=== PATIENT | female | born 1950 | race Caucasian/White ===

== ENCOUNTER → 2016-11-20 | Outpatient (CLI) | payer MEDICARE, OTHER ==
[~2016-11-20] MED LIST: /PREG100CA PO; /ROPI1TA PO; ALBUPOW9 INH; APIDINJ2 SC; CALC600T53 PO; CALC600T7 PO; CORE25TA PO; CYMB60CA3 PO; DEMA20TA PO; FERR325T3 PO; IMIT100T PO; INSULANT SQ; INSULIN GLULISINE SQ; KLON0.5T PO; LIDO1DIS2 TD; LOSA100T36 PO; MULTTAB4 PO; PRAV40TA PO; TIZA4CAP PO; VICO5TAB PO; lidocaine patches TOP
[2016-11-20 16:14] LABS: ABG BASE EXCESS 5.1 (-2.0-2.0); ABG HCO3 30.7 MEQ/L (22.0-26.0); ABG PARTIAL PRESSURE CO2 49.3 mmHg (35.0-45.0); ABG PARTIAL PRESSURE O2 61.4 mmHg (75.0-100.0); ABG STANDARD HCO3 28.9 MEQ/L (22.0-26.0); ABG TOTAL CO2 32.2 MEQ/L (23.0-31.0); ABG pH (ARTERIAL) 7.412 UNITS (7.350-7.450)
== END ==
LOC: M LAB 14:02
PROVIDERS: ATTEND Internal Medicine Pulmonary Disease
DX: E66.2 Morbid (severe) obesity with alveolar hypoventilation (principal)

== ENCOUNTER → 2016-11-28 | Outpatient (CLI) | payer MEDICARE, OTHER ==
[2016-11-28 18:41] LABS: FREE T4 0.96 NG/DL (0.76-1.46)
== END ==
LOC: M SMT 13:38
PROVIDERS: ATTEND Internal Medicine Pulmonary Disease
DX: G47.33 Obstructive sleep apnea (adult) (pediatric) (principal); E03.9 Hypothyroidism, unspecified

== ENCOUNTER 2020-01-13 10:52 | Outpatient (RCR) | payer MEDICARE, OTHER ==
[~2020-01-13 10:52] MED LIST changes: -/PREG100CA PO; -/ROPI1TA PO; +ACET1TAB55 PO; +ALBU83IN INH; +AMBI5TAB PO; +APIDINJ INJ; +AUGM500T34 PO; +BISAC5TA PO; +CALC1CAP31 PO; +CARV6.25 PO; +COLA100C5 PO; +CORE6.25 PO; +DULO30CA9 PO; +FIBE625T PO; +HUMA100I5 SC; +IRBE75TA4 PO; +LANTINJ4 SC; +LINZ145C PO; +LIPI10TA PO; +LYRI100C PO; +MILK120011 PO; +NUTRPOW11 PO; +ONDA-83 PO; +OXYC-517 PO; +OXYCO5TA PO; +PANT40TA29 PO; +POLY1POW38 PO; +PRAV40TA2 PO; +PREG100CA PO; +PROT1TAB2 PO; +RANI-397 PO; +REQU1TAB16 PO; +TORS10TA3 PO; +TRAM50TA2 PO; +VALS40TA9 PO; +VITA1CAP25 PO; +VITA500045 PO; +VITMTA PO; +XARE10TA PO; +ZANA2CAP PO
== END 2020-01-30 ==
LOC: M PT 10:52
PROVIDERS: ATTEND Internal Medicine
DX: I89.0 Lymphedema, not elsewhere classified (principal)

== ENCOUNTER 2020-02-05 12:00 | Outpatient (RCR) | payer MEDICARE, OTHER | END 2020-03-01 | LOC: M PT 12:00 | PROVIDERS: ATTEND Internal Medicine | DX: I89.0 Lymphedema, not elsewhere classified (principal) ==

== ENCOUNTER 2022-09-12 16:21 | Inpatient (IN) | payer MEDICARE, OTHER ==
[2022-09-12] VITALS (12 sets, daily range): BP systolic 92–204; BP diastolic 52–85
[~2022-09-12] VITALS: Ht 157.5 cm; Wt 126.0 kg
[~2022-09-12 16:21] MED LIST changes: +ALBU2.5V10 INH; -ALBU83IN INH; +CYMB60CA4 PO
[2022-09-12] MEDS: ENOXAPARIN 120MG/0.8ML SYRINGE SC SCH (21:00)
[2022-09-12] MEDS ORDERED: fentaNYL CITRATE/NaCl 1,000 MCG in IV 1 EA IV SCH (21:40)
[2022-09-12] MEDS ORDERED: FENTANYL DRIP LOCK BOX KEY 1 EACH XX PRN (21:40)
[2022-09-12] MEDS ORDERED: MIDAZOLAM 100MG/100ML-0.9%NACL 100 MG in IV 1 EA IV SCH (21:40)
[2022-09-12] MEDS ORDERED: GLUCAGON INJ 1MG VIAL SC PRN (21:45)
[2022-09-12] MEDS ORDERED: DEXTROSE 50% 50ML SYRINGE IV PRN (21:45)
[2022-09-12] MEDS ORDERED: NS 1,000 ML IV SCH (21:45)
[2022-09-12] MEDS ORDERED: GLUCOSE 4GM CHEW TABLET PO PRN (21:45)
[2022-09-12] MEDS ORDERED: PROPOFOL 1,000 MG/100 ML VIAL As Ordered ONE (22:10)
[2022-09-12 22:25] LABS: ABG BASE EXCESS 15.3 (-2.0-2.0); ABG HCO3 39.7 MEQ/L (22.0-26.0); ABG O2 SATURATION 93.1 % (95.0-99.0); ABG PARTIAL PRESSURE CO2 48.1 mmHg (35.0-45.0); ABG TOTAL CO2 41.2 MEQ/L (23.0-31.0); ABG pH (ARTERIAL) 7.535 UNITS (7.350-7.450)
[2022-09-12 22:27] LABS: BASO % 0.3 % (0.0-1.0); EOS % 0.3 % (0.0-3.0); HEMATOCRIT 35.8 % (36.0-47.0); HEMOGLOBIN 10.2 g/dl (12.0-15.5); LYMPH # 0.9 10^3/uL (1.5-5.0); LYMPH % 9.4 % (24.0-44.0); MEAN CORPUSCULAR HEMOGLOBIN 24.8 pg (27.0-33.0); MEAN CORPUSCULAR HGB CONC 28.5 g/dl (32.0-36.5); MEAN CORPUSCULAR VOLUME 86.9 fl (80.0-96.0); MONO # 1.1 10^3/uL (0.0-0.8); MONO % 12.1 % (2.0-8.0); NEUTROPHILS # 7.1 10^3/uL (1.5-8.5); NEUTROPHILS % 77.5 % (36.0-66.0); PLATELET COUNT, AUTOMATED 149 10^3/uL (150-450); RED BLOOD COUNT 4.12 10^6/uL (4.00-5.40); WHITE BLOOD COUNT 9.2 10^3/uL (4.0-10.0)
[2022-09-12] MEDS: propofoL 1,000 MG in IV 1 EA IV SCH (22:39)
[2022-09-12] MEDS: methylPREDNISolone 40MG 1ML VIAL IV SCH (22:43)
[2022-09-12 22:59] LABS: ALBUMIN 2.2 G/DL (3.2-5.2); ALKALINE PHOSPHATASE 106 U/L (46-116); ALT/SGPT 13 U/L (7.0-40); AST/SGOT 31 U/L (<34); BILIRUBIN,TOTAL 0.6 MG/DL (0.3-1.2); BLOOD UREA NITROGEN 34 MG/DL (9-23); CARBON DIOXIDE LEVEL > 40.0 MMOL/L (20-31); CHLORIDE LEVEL 100 MMOL/L (98-107); CREATININE FOR GFR 1.42 MG/DL (0.55-1.30); GLOMERULAR FILTRATION RATE 38.9 (>39); GLUCOSE, FASTING 198 MG/DL (74-106); MAGNESIUM LEVEL 1.6 MG/DL (1.8-2.4); PHOSPHORUS LEVEL 1.9 MG/DL (2.4-5.1); POTASSIUM SERUM 3.7 MMOL/L (3.5-5.1); SODIUM LEVEL 145 MMOL/L (136-145); TOTAL PROTEIN 5.6 G/DL (5.7-8.2)
[2022-09-12] MEDS ORDERED: VITA200012 PO (23:01)
[2022-09-12] MEDS ORDERED: ROPI0.253 PO (23:01)
[2022-09-12] MEDS ORDERED: HYDR-3713 PO (23:01)
[2022-09-12] MEDS ORDERED: PREG50CA2 PO (23:01)
[2022-09-12] MEDS ORDERED: med rec comment (23:06)
[2022-09-12] MEDS ORDERED: NS 500 ML IV ONE (23:15)
[2022-09-12] MEDS: INSULIN LISPRO (NovoLOG) PER UNIT SC SCH (23:35)
[2022-09-12] MEDS: MAG SULF 1GM/100ML (MAG RUN) 1 GM in IV 1 EA IV SCH (23:36)
[2022-09-12] MEDS ORDERED: APIDINJ SC (23:50)
[2022-09-12] MEDS ORDERED: CARV6.25 PO (23:50)
[2022-09-12] MEDS ORDERED: TORS10TA3 PO (23:52)
[2022-09-12] MEDS ORDERED: LANTINJ4 SC (23:52)
[2022-09-12 23:55] LABS: VENOUS BASE EXCESS 13.2 (-2.0-2.0); VENOUS HCO3 37.2 MEQ/L (23.0-27.0); VENOUS O2 SATURATION 98.5 % (60.0-80.0); VENOUS PARTIAL PRESSURE CO2 44.9 mmHg (38.0-50.0); VENOUS PARTIAL PRESSURE O2 105.5 mmHg (30.0-50.0); VENOUS PH 7.536 UNITS (7.330-7.430); VENOUS TOTAL CO2 38.6 MEQ/L (24.0-28.0)
[2022-09-12] MEDS ORDERED: LEVO1INJ4 IV (23:55)
[2022-09-12] MEDS ORDERED: PANT-23 PO (23:55)
[2022-09-12] MEDS ORDERED: DULO60CA35 PO (23:55)
[2022-09-12] MEDS ORDERED: TRAZ-252 PO (23:56)
[2022-09-12] MEDS ORDERED: ELIQ5TAB PO (23:56)
[2022-09-13] VITALS (35 sets, daily range): BP systolic 92–196; BP diastolic 53–94
[2022-09-13] MEDS ORDERED: UNRESOLVED CLARIFICATION ENTRY XX SCH (00:01)
[2022-09-13] MEDS: MAG SULF 1GM/100ML (MAG RUN) 1 GM in IV 1 EA IV SCH (00:06)
[2022-09-13] MEDS ORDERED: POTASSIUM PHOSPHATE INJ 15 MMOL in D5W 250 ML IV ONE (01:00)
[2022-09-13] MEDS: propofoL 1,000 MG in IV 1 EA IV SCH ×3 (01:30→08:02)
[2022-09-13 02:45] LABS: VENOUS BASE EXCESS 13.3 (-2.0-2.0); VENOUS O2 SATURATION 97.5 % (60.0-80.0); VENOUS PARTIAL PRESSURE CO2 43.3 mmHg (38.0-50.0); VENOUS PARTIAL PRESSURE O2 82.9 mmHg (30.0-50.0); VENOUS STANDARD HCO3 37.1 MEQ/L; VENOUS TOTAL CO2 38.4 MEQ/L (24.0-28.0)
[2022-09-13] MEDS ORDERED: FUROSEMIDE 40MG/4ML VIAL IV ONE (04:00)
[2022-09-13] MEDS: methylPREDNISolone 40MG 1ML VIAL IV SCH ×3 (04:26→18:34)
[2022-09-13 05:14] LABS: CALCIUM LEVEL 7.9 MG/DL (8.3-10.6); CREATININE FOR GFR 1.55 MG/DL (0.55-1.30); GLOMERULAR FILTRATION RATE 35.2 (>39); MAGNESIUM LEVEL 2.1 MG/DL (1.8-2.4); POTASSIUM SERUM 4.1 MMOL/L (3.5-5.1)
[2022-09-13 05:56] LABS: ABG BASE EXCESS 15.7 (-2.0-2.0); ABG HCO3 39.9 MEQ/L (22.0-26.0); ABG PARTIAL PRESSURE CO2 46.9 mmHg (35.0-45.0); ABG PARTIAL PRESSURE O2 72.6 mmHg (75.0-100.0); ABG STANDARD HCO3 39.6 MEQ/L (22.0-26.0); ABG TOTAL CO2 41.4 MEQ/L (23.0-31.0); ABG pH (ARTERIAL) 7.548 UNITS (7.350-7.450)
[2022-09-13] MEDS: INSULIN LISPRO (NovoLOG) PER UNIT SC SCH ×3 (06:38→17:53)
[2022-09-13] MEDS: ALBUTEROL SULFATE 2.5MG/0.5ML INH NEB SOLN NEB SCH ×4 (08:20→19:30)
[2022-09-13] MEDS: ENOXAPARIN 120MG/0.8ML SYRINGE SC SCH ×2 (08:36→20:33)
[2022-09-13] MEDS: PANTOPRAZOLE 40MG VIAL IV SCH (08:36)
[2022-09-13] MEDS ORDERED: AZITHROMYCIN 250MG TABLET GT SCH (09:00)
[2022-09-13] MEDS ORDERED: CHLORHEXIDINE GLUCONATE 0.12 % 15ML UDC (PERIDEX ORAL RINSE) MT SCH (09:00)
[2022-09-13] MEDS ORDERED: PREG150C PO (09:32)
[2022-09-13] MEDS ORDERED: FARX1TAB3 PO (09:32)
[2022-09-13] MEDS ORDERED: ONDA-83 PO (09:32)
[2022-09-13] MEDS ORDERED: CARV3.12 PO (09:32)
[2022-09-13] MEDS ORDERED: TORS20TA2 PO (09:32)
[2022-09-13] MEDS ORDERED: HOME MED LIST COMPLETE! XX SCH (09:40)
[2022-09-13] MEDS ORDERED: MIDAZOLAM INJ 2MG/2ML VIAL IV PRN (10:10)
[2022-09-13 12:46] LABS: ABG BASE EXCESS 9.8 (-2.0-2.0); ABG HCO3 33.5 MEQ/L (22.0-26.0); ABG O2 SATURATION 90.1 % (95.0-99.0); ABG PARTIAL PRESSURE CO2 41.5 mmHg (35.0-45.0); ABG PARTIAL PRESSURE O2 54.2 mmHg (75.0-100.0); ABG STANDARD HCO3 33.4 MEQ/L (22.0-26.0); ABG TOTAL CO2 34.8 MEQ/L (23.0-31.0); ABG pH (ARTERIAL) 7.525 UNITS (7.350-7.450)
[2022-09-13] MEDS: CARVedilol 3.125 MG TAB GT SCH ×2 (13:23→20:33)
[2022-09-13] MEDS: cefTRIAXone SOD 1 GM in D5W MINI-BAG PLUS 50 ML IV SCH (13:24)
[2022-09-13] MEDS ORDERED: FUROSEMIDE 40MG/4ML VIAL IV SCH (17:00)
[2022-09-14] VITALS (8 sets, daily range): BP systolic 126–174; BP diastolic 65–90
[2022-09-14 00:09] LABS: ABG BASE EXCESS 10.9 (-2.0-2.0); ABG HCO3 34.9 MEQ/L (22.0-26.0); ABG O2 SATURATION 96.3 % (95.0-99.0); ABG PARTIAL PRESSURE CO2 43.4 mmHg (35.0-45.0); ABG PARTIAL PRESSURE O2 79.8 mmHg (75.0-100.0); ABG STANDARD HCO3 34.7 MEQ/L (22.0-26.0); ABG TOTAL CO2 36.2 MEQ/L (23.0-31.0); ABG pH (ARTERIAL) 7.523 UNITS (7.350-7.450)
[2022-09-14] MEDS: INSULIN LISPRO (NovoLOG) PER UNIT SC SCH ×5 (00:45→22:24)
[2022-09-14] MEDS ORDERED: ACETAMINOPHEN TAB 650MG DOSE (2X325MG) PO ONE (00:55)
[2022-09-14] MEDS: methylPREDNISolone 40MG 1ML VIAL IV SCH ×2 (02:21→15:55)
[2022-09-14 04:52] LABS: HEMOGLOBIN 9.6 g/dl (12.0-15.5); MEAN CORPUSCULAR HEMOGLOBIN 24.1 pg (27.0-33.0); MEAN CORPUSCULAR HGB CONC 29.1 g/dl (32.0-36.5); MEAN CORPUSCULAR VOLUME 82.7 fl (80.0-96.0); PLATELET COUNT, AUTOMATED 165 10^3/uL (150-450); RED BLOOD COUNT 3.99 10^6/uL (4.00-5.40); WHITE BLOOD COUNT 13.2 10^3/uL (4.0-10.0)
[2022-09-14 05:50] LABS: CALCIUM LEVEL 8.4 MG/DL (8.3-10.6); CREATININE FOR GFR 1.64 MG/DL (0.55-1.30); POTASSIUM SERUM 3.1 MMOL/L (3.5-5.1)
[2022-09-14 06:20] LABS: ABG BASE EXCESS 12.4 (-2.0-2.0); ABG HCO3 37.1 MEQ/L (22.0-26.0); ABG O2 SATURATION 97.4 % (95.0-99.0); ABG PARTIAL PRESSURE CO2 48.3 mmHg (35.0-45.0); ABG PARTIAL PRESSURE O2 89.5 mmHg (75.0-100.0); ABG STANDARD HCO3 36.2 MEQ/L (22.0-26.0); ABG TOTAL CO2 38.6 MEQ/L (23.0-31.0); ABG pH (ARTERIAL) 7.503 UNITS (7.350-7.450)
[2022-09-14] MEDS: ALBUTEROL SULFATE 2.5MG/0.5ML INH NEB SOLN NEB SCH ×4 (07:19→21:17)
[2022-09-14] MEDS ORDERED: POTASSIUM CHLORIDE 10% LIQ 20MEQ/15ML UDC PO ONE (07:20)
[2022-09-14] MEDS: KCL 10MEQ/100ML SWI (KRUN) 10 MEQ in IV 1 EA IV SCH ×2 (08:23→09:36)
[2022-09-14] MEDS: PANTOPRAZOLE 40MG VIAL IV SCH (08:23)
[2022-09-14] MEDS: CARVedilol 3.125 MG TAB GT SCH (08:28)
[2022-09-14] MEDS: ENOXAPARIN 120MG/0.8ML SYRINGE SC SCH (09:00)
[2022-09-14] MEDS: AZITHROMYCIN 250MG TABLET PO SCH (09:35)
[2022-09-14] MEDS: NORCO, ANEXSIA 5/325MG TABLET (HYDROcodone/ACETAMINOPHEN) PO PRN ×2 (10:44→18:43)
[2022-09-14] MEDS ORDERED: traZODone 50 MG TAB PO ONE (13:20)
[2022-09-14] MEDS: cefTRIAXone SOD 1 GM in D5W MINI-BAG PLUS 50 ML IV SCH (13:29)
[2022-09-14] MEDS: APIXABAN 5 MG TAB (ELIQUIS) PO SCH ×2 (13:29→21:28)
[2022-09-14] MEDS ORDERED: LevoFLOXacin IV 750 MG in IV 1 EA IV SCH (15:00)
[2022-09-14] MEDS: rOPINIRole 0.25 MG TAB(REQUIP) PO SCH ×2 (18:08→21:28)
[2022-09-14] MEDS ORDERED: traZODone 50 MG TAB PO SCH (21:00)
[2022-09-15] VITALS: BP 126/72
[2022-09-15] MEDS ORDERED: SIMETHICONE 80MG CHEW TAB PO ONE (01:45)
[2022-09-15] MEDS: methylPREDNISolone 40MG 1ML VIAL IV SCH (01:54)
[2022-09-15] MEDS: NORCO, ANEXSIA 5/325MG TABLET (HYDROcodone/ACETAMINOPHEN) PO PRN ×4 (03:32→22:43)
[2022-09-15 04:00] VITALS: BP 166/77
[2022-09-15 04:50] LABS: HEMATOCRIT 30.4 % (36.0-47.0); HEMOGLOBIN 8.9 g/dl (12.0-15.5); LYMPH # 0.6 10^3/uL (1.5-5.0); LYMPH % 6.1 % (24.0-44.0); MEAN CORPUSCULAR HEMOGLOBIN 24.1 pg (27.0-33.0); MEAN CORPUSCULAR HGB CONC 29.3 g/dl (32.0-36.5); MEAN CORPUSCULAR VOLUME 82.2 fl (80.0-96.0); MONO # 0.4 10^3/uL (0.0-0.8); NEUTROPHILS # 9.1 10^3/uL (1.5-8.5); NEUTROPHILS % 89.6 % (36.0-66.0); PLATELET COUNT, AUTOMATED 168 10^3/uL (150-450); WHITE BLOOD COUNT 10.2 10^3/uL (4.0-10.0)
[2022-09-15 05:16] LABS: CALCIUM LEVEL 8.6 MG/DL (8.3-10.6); CREATININE FOR GFR 1.45 MG/DL (0.55-1.30); POTASSIUM SERUM 3.5 MMOL/L (3.5-5.1)
[2022-09-15] MEDS: INSULIN LISPRO (NovoLOG) PER UNIT SC SCH ×4 (06:06→21:00)
[2022-09-15] MEDS: ALBUTEROL SULFATE 2.5MG/0.5ML INH NEB SOLN NEB SCH ×5 (07:38→19:50)
[2022-09-15 07:54] LABS: ABG BASE EXCESS 8.5 (-2.0-2.0); ABG HCO3 34.2 MEQ/L (22.0-26.0); ABG O2 SATURATION 97.8 % (95.0-99.0); ABG PARTIAL PRESSURE CO2 53.5 mmHg (35.0-45.0); ABG PARTIAL PRESSURE O2 106.5 mmHg (75.0-100.0); ABG STANDARD HCO3 32.3 MEQ/L (22.0-26.0); ABG TOTAL CO2 35.8 MEQ/L (23.0-31.0); ABG pH (ARTERIAL) 7.423 UNITS (7.350-7.450)
[2022-09-15 08:00] VITALS: BP 166/67
[2022-09-15] MEDS: APIXABAN 5 MG TAB (ELIQUIS) PO SCH ×2 (09:24→20:54)
[2022-09-15] MEDS: predniSONE 20 MG TAB PO SCH (09:24)
[2022-09-15] MEDS: CARVedilol 3.125 MG TAB PO SCH ×2 (09:25→20:55)
[2022-09-15] MEDS: AZITHROMYCIN 250MG TABLET PO SCH (09:25)
[2022-09-15] MEDS: PANTOPRAZOLE 40MG VIAL IV SCH (09:25)
[2022-09-15 11:50] VITALS: BP 150/62
[2022-09-15] MEDS: cefTRIAXone SOD 1 GM in D5W MINI-BAG PLUS 50 ML IV SCH (13:01)
[2022-09-15 14:00] VITALS: BP 167/81
[2022-09-15] MEDS ORDERED: ACETAMINOPHEN 325 MG TAB PO PRN (14:05)
[2022-09-15] MEDS ORDERED: ALBUTEROL SULFATE 2.5MG/0.5ML INH NEB SOLN INH PRN (14:05)
[2022-09-15] MEDS: DAPAGLIFLOZIN PROPANEDIOL 10MG TABLET (FARXIGA) PO SCH (14:41)
[2022-09-15] MEDS: rOPINIRole 0.25 MG TAB(REQUIP) PO SCH ×2 (17:10→20:53)
[2022-09-15] MEDS ORDERED: LEVEMIR (INSULIN DETEMIR) 1 UNITS/0.01ML SC SCH (21:00)
[2022-09-15] MEDS ORDERED: PREGABALIN 75 MG CAP(LYRICA) PO SCH (21:00)
[2022-09-15] MEDS ORDERED: traZODone 50 MG TAB PO SCH (21:00)
[2022-09-15] MEDS ORDERED: DULoxetine 30MG CAPSULE (CYMBALTA) PO SCH (21:00)
[2022-09-15 22:00] VITALS: BP 173/69
[2022-09-16 06:00] VITALS: BP 171/69
[2022-09-16 07:18] LABS: BASO % 0.1 % (0.0-1.0); EOS % 0.1 % (0.0-3.0); HEMATOCRIT 33.4 % (36.0-47.0); HEMOGLOBIN 9.4 g/dl (12.0-15.5); LYMPH # 1.1 10^3/uL (1.5-5.0); LYMPH % 12.9 % (24.0-44.0); MEAN CORPUSCULAR HEMOGLOBIN 23.6 pg (27.0-33.0); MEAN CORPUSCULAR HGB CONC 28.1 g/dl (32.0-36.5); MEAN CORPUSCULAR VOLUME 83.9 fl (80.0-96.0); MONO % 11.6 % (2.0-8.0); NEUTROPHILS # 6.3 10^3/uL (1.5-8.5); NEUTROPHILS % 75.1 % (36.0-66.0); PLATELET COUNT, AUTOMATED 173 10^3/uL (150-450); RED BLOOD COUNT 3.98 10^6/uL (4.00-5.40); WHITE BLOOD COUNT 8.4 10^3/uL (4.0-10.0)
[2022-09-16] MEDS: ALBUTEROL SULFATE 2.5MG/0.5ML INH NEB SOLN NEB SCH ×2 (07:43→11:07)
[2022-09-16 07:47] LABS: CALCIUM LEVEL 8.7 MG/DL (8.3-10.6); CREATININE FOR GFR 1.25 MG/DL (0.55-1.30); GLOMERULAR FILTRATION RATE 45.1 (>39); MAGNESIUM LEVEL 2.2 MG/DL (1.8-2.4); POTASSIUM SERUM 3.4 MMOL/L (3.5-5.1)
[2022-09-16] MEDS ORDERED: TIOTROPIUM INHALER/CAPSULE (SPIRIVA) INH SCH (08:00)
[2022-09-16] MEDS: INSULIN LISPRO (NovoLOG) PER UNIT SC SCH ×2 (08:37→12:36)
[2022-09-16 08:39] VITALS: BP 171/69
[2022-09-16] MEDS: APIXABAN 5 MG TAB (ELIQUIS) PO SCH (08:39)
[2022-09-16] MEDS: DAPAGLIFLOZIN PROPANEDIOL 10MG TABLET (FARXIGA) PO SCH (08:39)
[2022-09-16] MEDS: CARVedilol 3.125 MG TAB PO SCH (08:39)
[2022-09-16] MEDS: predniSONE 20 MG TAB PO SCH (08:39)
[2022-09-16] MEDS ORDERED: TORSEMIDE 20 MG TAB PO SCH (09:00)
[2022-09-16] MEDS ORDERED: PANTOPRAZOLE 40MG TAB (PROTONIX) PO SCH (09:00)
[2022-09-16] MEDS ORDERED: PRED20TA PO (09:27)
[2022-09-16] MEDS ORDERED: CEFD300C41 PO (09:27)
[2022-09-16] MEDS ORDERED: TIOT18INH INH (09:27)
[2022-09-16] MEDS ORDERED: IPRA0.00 INH (09:30)
[2022-09-16] MEDS ORDERED: POTASSIUM CHLORIDE 10MEQ SR TABLET PO SCH (10:00)
== END 2022-09-16 14:21 | disposition home or self-care (01) | DRG 208 ==
LOC: M ICU 21:25 → M MSPAV 09-15 11:50
PROVIDERS: ADMIT Internal Medicine; ATTEND Student in an Organized Health Care Education/Training Program
PROC: 5A1935Z Respiratory Ventilation, Less than 24 Consecutive Hours (ICD-10-PCS; principal; 2022-09-12)
DX: J96.22 Acute and chronic respiratory failure with hypercapnia (principal); G93.41 Metabolic encephalopathy; I50.33 Acute on chronic diastolic (congestive) heart failure; J18.9 Pneumonia, unspecified organism; I48.92 Unspecified atrial flutter; J44.1 Chronic obstructive pulmonary disease with (acute) exacerbation; E87.3 Alkalosis; E66.2 Morbid (severe) obesity with alveolar hypoventilation; J44.0 Chronic obstructive pulmonary disease with (acute) lower respiratory infection; I48.20 Chronic atrial fibrillation, unspecified; J96.21 Acute and chronic respiratory failure with hypoxia; E11.42 Type 2 diabetes mellitus with diabetic polyneuropathy; E11.40 Type 2 diabetes mellitus with diabetic neuropathy, unspecified; E11.22 Type 2 diabetes mellitus with diabetic chronic kidney disease; E11.649 Type 2 diabetes mellitus with hypoglycemia without coma; J20.9 Acute bronchitis, unspecified; E87.6 Hypokalemia; N18.30 Chronic kidney disease, stage 3 unspecified; G25.81 Restless legs syndrome; D64.9 Anemia, unspecified; K21.9 Gastro-esophageal reflux disease without esophagitis; Z66 Do not resuscitate; G89.29 Other chronic pain; F41.9 Anxiety disorder, unspecified; Z79.01 Long term (current) use of anticoagulants; Z88.8 Allergy status to other drugs, medicaments and biological substances; Z79.899 Other long term (current) drug therapy; Z79.4 Long term (current) use of insulin